=== PATIENT | male | born 1965 | race Caucasian/White ===

== ENCOUNTER 2019-11-29 10:31 | Outpatient (CLI) | payer OTHER, SELFPAY ==
--- NOTE | 2019-11-29 10:47 | XR_ITS ---
WS: [id number] XR shoulder LT min 2V* [id number] REASON FOR EXAM: LEFT SHOULDER PAIN FINDINGS: The acromioclavicular joint showed hypertrophic changes. Elevation of the humerus in the glenoid fossa consistent with grade 3 impingement changes. The scapula and clavicle show no fractures. XR/XR shoulder LT min 2V* [id number] IMPRESSION: Glenoid humeral grade 3 impingement changes. Hypertrophy of the acromioclavicular joint.
== END 2019-11-29 10:32 | disposition home or self-care (01) ==
LOC: RAD 10:40
PROVIDERS: Family Provider Family Medicine; PCP Family Medicine; Visit Provider Family Medicine
DX: Z02.71 Encounter for disability determination (principal); M75.42 Impingement syndrome of left shoulder
CPT/HCPCS: 73030